=== PATIENT | male | born 1940 | race Hispanic/Latino ===

== ENCOUNTER 2018-02-12 10:12 | Outpatient (RCR) | payer OTHER | END 2018-02-25 | LOC: WCC 10:12 | PROVIDERS: ATTEND Plastic Surgery | DX: E11.8 Type 2 diabetes mellitus with unspecified complications (principal); L89.154 Pressure ulcer of sacral region, stage 4; L89.894 Pressure ulcer of other site, stage 4; M86.38 Chronic multifocal osteomyelitis, other site; G82.20 Paraplegia, unspecified; G82.21 Paraplegia, complete; N18.3 Chronic kidney disease, stage 3 (moderate); N39.0 Urinary tract infection, site not specified; D12.8 Benign neoplasm of rectum; D50.8 Other iron deficiency anemias; E46 Unspecified protein-calorie malnutrition; I25.10 Atherosclerotic heart disease of native coronary artery without angina pectoris; I50.9 Heart failure, unspecified; Z74.01 Bed confinement status ==

== ENCOUNTER 2018-06-04 10:21 | Outpatient (RCR) | payer OTHER | END 2018-06-28 | LOC: WCC 10:21 | PROVIDERS: ATTEND Plastic Surgery | DX: E11.8 Type 2 diabetes mellitus with unspecified complications (principal); L89.154 Pressure ulcer of sacral region, stage 4; L89.894 Pressure ulcer of other site, stage 4; M86.38 Chronic multifocal osteomyelitis, other site; G82.21 Paraplegia, complete; G82.20 Paraplegia, unspecified; N39.0 Urinary tract infection, site not specified; D12.8 Benign neoplasm of rectum; D50.8 Other iron deficiency anemias; E46 Unspecified protein-calorie malnutrition; I25.10 Atherosclerotic heart disease of native coronary artery without angina pectoris; I50.9 Heart failure, unspecified; N18.3 Chronic kidney disease, stage 3 (moderate); Z74.01 Bed confinement status ==